=== PATIENT | male | born 1955 | race Caucasian/White ===

== ENCOUNTER → 2020-07-03 12:36 | Outpatient (BNVA) | payer BC, SELFPAY | PROVIDERS: Visit Provider Nurse Practitioner Family | DX: J02.9 Acute pharyngitis, unspecified (principal); Z20.822 Contact with and (suspected) exposure to COVID-19; Z68.24 Body mass index [BMI] 24.0-24.9, adult | CPT/HCPCS: 87071; 87635; 87880 ==

== ENCOUNTER 2023-11-13 14:43 | Outpatient (CLI) | payer MEDICARE, BC, SELFPAY ==
--- NOTE | 2023-11-13 14:46 | MR_ITS ---
WS: [id number] MRI BRAIN WITH AND WITHOUT CONTRAST HISTORY: PERIPHERAL VERTIGO INVOLVING L EAR COMPARISON: None available. TECHNIQUE: Multiplanar imaging performed through the brain with MultiHance 17 ml's IV. No acute infarcts are seen. Paulson-white matter differentiation is well preserved. Mild volume loss and atrophy. No prior infarct. Minimal small vessel disease. No susceptibility artifacts or prior lacunar infarcts. Ventricles and extra-axial spaces are normal. Clivus and pituitary gland are normal. Visualized posterior fossa and brainstem are also normal. Postcontrast images are negative for masses or vascular malformations. Dural venous sinuses are normal. Paranasal sinuses: Well aerated with no significant disease. Mastoid air cells: Normal. Calvarium and scalp: Normal. MR/MR head wo/w con [id number] IMPRESSION: 1. No acute infarct or enhancing mass. 2. Mild symmetric volume loss. Minimal small vessel disease. 3. No mass at the cerebellopontine angles. 4. No significant sinus disease. 5. No hydrocephalus.
[2023-11-13] MEDS: gadobenate dimeglumine 20 mL vial IV (15:59)
== END 2023-11-13 14:44 | disposition home or self-care (01) ==
PROVIDERS: PCP Internal Medicine; Visit Provider Internal Medicine
DX: H81.392 Other peripheral vertigo, left ear (principal)
CPT/HCPCS: 70553; A9577